=== PATIENT | male | born 1950 | race Caucasian/White ===

== ENCOUNTER 2017-11-05 15:35 | Emergency (ER) | payer SELFPAY ==
[~2017-11-05] VITALS: Ht 172.7 cm; Wt 86.5 kg
[2017-11-05 16:54] LABS: BASOPHILS % 0.9 % (0.0-2.0); EOSINOPHILS % 1.1 % (0.0-5.0); HEMATOCRIT. 44.6 % (42.0-52.0); HEMOGLOBIN. 15.6 g/dL (14.0-18.0); LYMPHOCYTES % 29.7 % (20.0-50.0); MEAN CORPUSCULAR HEMOGLOBIN 36.2 pg (28.0-32.0); MEAN CORPUSCULAR VOLUME 103.5 fL (80.0-94.0); MEAN PLATELET VOLUME 9.6 fl (7.4-10.4); MONOCYTES % 10.2 % (2.0-8.0); NEUTROPHILS % 58.1 % (40.0-76.0); PLATELET 199 x1000/uL (130-400); RED BLOOD CELL COUNT 4.31 mill/uL (4.7-6.1); RED CELL DISTRIBUTION WIDTH 15.3 % (11.6-14.6)
[2017-11-05 16:57] LABS: CHLORIDE 106 mEq/L (98-107)
[2017-11-05] MEDS ORDERED: VERAPAMIL HCL 2.5 MG/1 ML 2ML VIAL IV ONE ×4 (17:30→18:30)
[2017-11-05] MEDS ORDERED: DILTIAZEM HCL 60MG TABLET PO ONE (18:00)
[2017-11-05 19:03] VITALS: BP 159/96
== END 2017-11-05 19:10 | disposition home or self-care (01) ==
LOC: ER 15:35
DX: I48.91 Unspecified atrial fibrillation (principal); I10 Essential (primary) hypertension; R00.0 Tachycardia, unspecified; Z87.891 Personal history of nicotine dependence
CPT/HCPCS: 36415; 71045; 80053; 83690; 84484; 85025; 93005; 96374; 96376; 99285; J3490; Z7610

== ENCOUNTER 2017-12-01 12:30 | Inpatient (IN) | payer SELFPAY ==
[~2017-12-01] VITALS: Ht 177.8 cm; Wt 86.6 kg
[2017-12-01 13:12] LABS: EOSINOPHILS % 0.5 % (0.0-5.0); HEMATOCRIT. 44.8 % (42.0-52.0); HEMOGLOBIN. 15.4 g/dL (14.0-18.0); LYMPHOCYTES % 25.4 % (20.0-50.0); MEAN CORPUSCULAR HEMOGLOBIN 35.5 pg (28.0-32.0); MEAN CORPUSCULAR VOLUME 103.2 fL (80.0-94.0); MEAN PLATELET VOLUME 9.9 fl (7.4-10.4); MONOCYTES % 9.8 % (2.0-8.0); NEUTROPHILS % 63.3 % (40.0-76.0); PLATELET 188 x1000/uL (130-400); RED BLOOD CELL COUNT 4.34 mill/uL (4.7-6.1); RED CELL DISTRIBUTION WIDTH 14.3 % (11.6-14.6)
[2017-12-01 13:14] LABS: CHLORIDE 103 mEq/L (98-107)
[2017-12-01 13:17] LABS: INR 1.1; PARTIAL THROMBOPLASTIN TIME 27.6 sec (23.4-31.0); PROTHROMBIN TIME 11.2 sec (9.4-11.6)
[2017-12-01] MEDS ORDERED: DILTIAZEM HCL 125 MG in DEXT 5% WATER 100 ML IV ONE ×4 (13:45)
[2017-12-01] MEDS ORDERED: ASPIRIN 81MG TABLET PO ONE (13:45)
[2017-12-01] MEDS ORDERED: DILTIAZEM HCL 5MG/ML 5ML VIAL IV ONE (13:45)
[2017-12-01 16:00] VITALS: BP 136/70
[2017-12-01 16:28] VITALS: BP 136/70
[2017-12-01] MEDS ORDERED: LORAZEPAM 0.5MG TABLET PO ONE (16:30)
[2017-12-01] MEDS ORDERED: LORAZEPAM 0.5MG TABLET PO PRN (17:00)
[2017-12-01] MEDS ORDERED: NITROGLYCERIN 0.4MG TABLET SL SL PRN (17:00)
[2017-12-01] MEDS: NITROGLYCERIN OINT 1GM/INCH UDPKT TD SCH ×2 (17:13→19:56)
[2017-12-01] MEDS ORDERED: ENOXAPARIN 30MG/0.3ML SYR SUBCUT NR (17:20)
[2017-12-01] MEDS ORDERED: ENOXAPARIN 40MG/0.4ML SYR SUBCUT NR (17:22)
[2017-12-01] MEDS ORDERED: ONDANSETRON HCL 4MG/2ML VIAL IV PRN (17:45)
[2017-12-01] MEDS ORDERED: NA PHOS,M-B/NA PHOS,DI-BA ENEMA 118ML PR PRN (17:45)
[2017-12-01] MEDS ORDERED: DIPHENHYDRAMINE 50MG/ML VIAL IV PRN (17:45)
[2017-12-01] MEDS ORDERED: ACETAMINOPHEN 325MG TABLET PO PRN (17:45)
[2017-12-01] MEDS ORDERED: MAGNESIUM/ALUMINUM HYDROXIDE/SIMETHICONE 30ML UDC PO PRN (17:45)
[2017-12-01] MEDS ORDERED: IPRATROPIUM/ALBUTEROL 0.5-3(2.5)MG/3ML NEB INH PRN (17:45)
[2017-12-01] MEDS ORDERED: GUAIFENESIN 200MG/10ML SUGAR FREE UDC PO PRN (17:45)
[2017-12-01 18:00] VITALS: BP 128/58
[2017-12-01 18:08] LABS: *AMPHETAMINES SCREEN URINE NEGATIVE (NEGATIVE); *BARBITURATES SCREEN URINE NEGATIVE (NEGATIVE); *BENZODIAZEPINES SCREEN URINE NEGATIVE (NEGATIVE); *COCAINE SCREEN URINE NEGATIVE (NEGATIVE)
[2017-12-01 18:09] LABS: CANNABINOID URINE SCREEN NEGATIVE (NEGATIVE); METHADONE URINE SCREEN NEGATIVE (NEGATIVE); OPIATES URINE SCREEN NEGATIVE (NEGATIVE); PHENCYCLIDINE URINE SCREEN NEGATIVE (NEGATIVE)
[2017-12-01 19:45] VITALS: BP 113/73
[2017-12-01] MEDS: DILTIAZEM HCL 125 MG in DEXT 5% WATER 100 ML IV SCH (19:53)
[2017-12-01 20:01] VITALS: BP 115/75
[2017-12-01] MEDS: LORAZEPAM 0.5MG TABLET PO PRN (20:09)
[2017-12-01 22:00] VITALS: BP 131/88
[2017-12-01] MEDS: ZOLPIDEM TARTRATE 5MG TABLET PO PRN (22:09)
[2017-12-02] VITALS (15 sets, daily range): BP systolic 112–166; BP diastolic 47–97
[2017-12-02] MEDS: NITROGLYCERIN OINT 1GM/INCH UDPKT TD SCH ×6 (00:11→20:42)
[2017-12-02] MEDS: ZOLPIDEM TARTRATE 5MG TABLET PO PRN ×2 (00:11→22:12)
[2017-12-02] MEDS: LORAZEPAM 0.5MG TABLET PO PRN ×2 (02:43→12:47)
[2017-12-02 06:55] LABS: BASOPHILS % 1.1 % (0.0-2.0); EOSINOPHILS % 0.3 % (0.0-5.0); HEMATOCRIT. 41.1 % (42.0-52.0); HEMOGLOBIN. 14.4 g/dL (14.0-18.0); LYMPHOCYTES % 17.6 % (20.0-50.0); MEAN CORPUSCULAR HEMOGLOBIN 35.9 pg (28.0-32.0); MEAN CORPUSCULAR VOLUME 102.7 fL (80.0-94.0); MEAN PLATELET VOLUME 10.5 fl (7.4-10.4); MONOCYTES % 12.3 % (2.0-8.0); NEUTROPHILS % 68.7 % (40.0-76.0); PLATELET 173 x1000/uL (130-400); RED BLOOD CELL COUNT 4.01 mill/uL (4.7-6.1)
[2017-12-02] MEDS ORDERED: SODIUM CHLORIDE 0.45% 1,000 ML IV SCH (07:00)
[2017-12-02 07:03] LABS: CHLORIDE 101 mEq/L (98-107)
[2017-12-02] MEDS ORDERED: LIDOCAINE HCL/PF 1% 10 MG/ML 30ML VIAL ONE (07:18)
[2017-12-02] MEDS ORDERED: IODIXANOL 320MG/ML 100 ML BOTTLE IV ONE ×2 (07:18→09:43)
[2017-12-02] MEDS ORDERED: ASPIRIN/SOD BICARB/CITRIC ACID 324MG TAB EFF ONE (07:21)
[2017-12-02 07:24] LABS: CREATINE KINASE 316 IU/L (39-308); CREATINE KINASE MB FRACTION 33.1 ng/mL (0.5-3.6); HDL CHOLESTEROL 65 mg/dL (40-59)
[2017-12-02 07:27] LABS: LDL CHOLESTEROL 69 mg/dL (5-100)
[2017-12-02] MEDS ORDERED: ASPI-1159 PO (07:32)
[2017-12-02] MEDS ORDERED: ASCO-316 PO (07:32)
[2017-12-02] MEDS ORDERED: CYAN10009 PO (07:32)
[2017-12-02] MEDS ORDERED: DOCU250C19 PO (07:32)
[2017-12-02] MEDS ORDERED: FENTANYL CITRATE/PF 50MCG/ML 2ML VIAL ONE (08:45)
[2017-12-02] MEDS ORDERED: MIDAZOLAM HCL 2 MG/2 ML VIAL ONE (08:45)
[2017-12-02] MEDS: DILTIAZEM HCL 125 MG in DEXT 5% WATER 100 ML IV SCH ×2 (09:00→20:07)
[2017-12-02] MEDS ORDERED: IOHEXOL-300 100 ML BOTTLE ONE (09:18)
[2017-12-02] MEDS ORDERED: CLOPIDOGREL 75MG TABLET ONE (09:36)
[2017-12-02] MEDS ORDERED: ATROPINE SULFATE 1MG/10ML SYR IV PRN (10:00)
[2017-12-02] MEDS ORDERED: MORPHINE SULFATE 2 MG/ML CPJ (NOT FOR IM USE) IV PRN (10:00)
[2017-12-02] MEDS ORDERED: ACETAMINOPHEN 325MG TABLET PO PRN (10:00)
[2017-12-02] MEDS ORDERED: ONDANSETRON HCL 4MG/2ML VIAL IV PRN (10:00)
[2017-12-02] MEDS ORDERED: SODIUM CHLORIDE 0.45% 1,000 ML IV ONE (10:00)
[2017-12-02] MEDS ORDERED: CLOPIDOGREL 75MG TABLET PO ONE (10:00)
[2017-12-02] MEDS ORDERED: DILTIAZEM HCL 60MG TABLET PO SCH (12:00)
[2017-12-02] MEDS ORDERED: HEPARIN SODIUM 1,000 UNIT/1ML VIAL IV ONE (12:30)
[2017-12-02] MEDS ORDERED: CHLORDIAZEPOXIDE 25MG CAPSULE PO PRN (13:45)
[2017-12-02] MEDS ORDERED: LORAZEPAM 0.5MG TABLET PO NR (13:45)
[2017-12-02] MEDS ORDERED: SPIRONOLACTONE 25MG TABLET PO NR (16:15)
[2017-12-02] MEDS ORDERED: POTASSIUM CHLORIDE 20MEQ TABLET SR PO NR (16:15)
[2017-12-02] MEDS ORDERED: FUROSEMIDE 40MG/4ML VIAL IVP NR (16:15)
[2017-12-02 16:50] LABS: BG CARBOXYHEMOGLOBIN 0.4 % (0.5-1.5); BG DEOXYHEMOGLOBIN 10.2 % (0.0-5.0); BG FRACTION INSPIRED OXYGEN 34; BG HCO3 ACT 23.4 mmol/L (22.0-26.0); BG METHEMOGLOBIN 0.3 % (0.0-1.5); BG OXYGEN SATURATION 89.7 % (92.0-98.5); BG OXYHEMOGLOBIN 89.1 % (94.0-97.0); BG PCO2 28.6 mmHg (35.0-45.0); BG PO2 54.5 mmHg (75.0-100.0); BG SAMPLE SITE RIGHT BRACHIAL; BG TOTAL HEMOGLOBIN 16.2 g/dL (12.0-18.0); BG VENT MODE NASAL CANNULA
[2017-12-02] MEDS ORDERED: FOLIC ACID 1 MG, THIAMINE HCL 100 MG, MVI, ADULT NO.1 10 ML in DEXTROSE 5% WATER 1,000 ML IV NR ×4 (18:00)
[2017-12-02] MEDS: DILTIAZEM HCL 90MG TABLET PO SCH (18:55)
[2017-12-02] MEDS ORDERED: MAGNESIUM 1 G PREMIX 100 ML IV NR (21:00)
[2017-12-02] MEDS: LACTULOSE 20G/30ML UDC PO SCH (22:11)
[2017-12-02] MEDS: CHLORDIAZEPOXIDE 25MG CAPSULE PO SCH (22:12)
[2017-12-02] MEDS: FOLIC ACID 1 MG, THIAMINE HCL 100 MG, MVI, ADULT NO.1 10 ML in DEXTROSE 5% WATER 1,000 ML IV NR ×4 (22:13)
[2017-12-03] VITALS (12 sets, daily range): BP systolic 104–173; BP diastolic 46–86
[2017-12-03] MEDS: DILTIAZEM HCL 90MG TABLET PO SCH ×4 (00:29→18:08)
[2017-12-03] MEDS: NITROGLYCERIN OINT 1GM/INCH UDPKT TD SCH ×6 (00:30→20:54)
[2017-12-03 06:31] LABS: CHLORIDE 97 mEq/L (98-107)
[2017-12-03] MEDS: LACTULOSE 20G/30ML UDC PO SCH ×2 (06:31→16:19)
[2017-12-03] MEDS: CHLORDIAZEPOXIDE 25MG CAPSULE PO SCH ×3 (06:31→21:46)
[2017-12-03 06:42] LABS: PHOSPHORUS 4.1 mg/dL (2.5-4.9)
[2017-12-03 06:43] LABS: BASOPHILS % 0.8 % (0.0-2.0); EOSINOPHILS % 0.3 % (0.0-5.0); HEMATOCRIT. 42.4 % (42.0-52.0); HEMOGLOBIN. 14.9 g/dL (14.0-18.0); LYMPHOCYTES % 16.7 % (20.0-50.0); MEAN CORPUSCULAR VOLUME 102.5 fL (80.0-94.0); MEAN PLATELET VOLUME 10.5 fl (7.4-10.4); MONOCYTES % 8.8 % (2.0-8.0); NEUTROPHILS % 73.4 % (40.0-76.0); PLATELET 170 x1000/uL (130-400); RED BLOOD CELL COUNT 4.13 mill/uL (4.7-6.1)
[2017-12-03 06:45] LABS: CREATINE KINASE 182 IU/L (39-308)
[2017-12-03] MEDS: FOLIC ACID 1 MG, THIAMINE HCL 100 MG, MVI, ADULT NO.1 10 ML in DEXTROSE 5% WATER 1,000 ML IV NR ×4 (07:00)
[2017-12-03 07:43] LABS: AMMONIA 29 uMol/L (<32)
[2017-12-03] MEDS ORDERED: POTASSIUM CHLORIDE 20MEQ TABLET SR PO NR (09:00)
[2017-12-03] MEDS ORDERED: FUROSEMIDE 40MG/4ML VIAL IVP NR (09:15)
[2017-12-03] MEDS: ASPIRIN 81MG TABLET PO SCH ×2 (09:37→18:08)
[2017-12-03] MEDS: CLOPIDOGREL 75MG TABLET PO SCH (09:38)
[2017-12-03] MEDS: SPIRONOLACTONE 25MG TABLET PO SCH (09:38)
[2017-12-03] MEDS: FUROSEMIDE 40MG TABLET PO SCH (09:39)
[2017-12-03] MEDS ORDERED: MAGNESIUM 1 G PREMIX 100 ML IV NR (10:30)
[2017-12-03] MEDS: MULTIVITAMINS,THER W-MINERALS TABLET PO SCH (18:08)
[2017-12-03] MEDS: THIAMINE HCL 100MG TABLET PO SCH (18:08)
[2017-12-03] MEDS: FOLIC ACID 1MG TABLET PO SCH (18:08)
[2017-12-03] MEDS ORDERED: MORPHINE SULFATE 4 MG/ML CPJ (NOT FOR IM USE) IV PRN (19:02)
[2017-12-03] MEDS: CARVEDILOL 3.125 MG TABLET PO SCH (21:44)
[2017-12-03] MEDS ORDERED: CHLORDIAZEPOXIDE 25MG CAPSULE PO SCH (22:00)
[2017-12-04] VITALS (14 sets, daily range): BP systolic 99–121; BP diastolic 54–74
[2017-12-04] MEDS: NITROGLYCERIN OINT 1GM/INCH UDPKT TD SCH ×6 (04:00→21:09)
[2017-12-04] MEDS: DILTIAZEM HCL 90MG TABLET PO SCH ×4 (06:17→17:47)
[2017-12-04] MEDS: CHLORDIAZEPOXIDE 25MG CAPSULE PO SCH ×3 (06:18→21:44)
[2017-12-04 07:02] LABS: AMMONIA 49 uMol/L (<32)
[2017-12-04 07:08] LABS: BASOPHILS % 0.9 % (0.0-2.0); EOSINOPHILS % 2.2 % (0.0-5.0); HEMATOCRIT. 41.6 % (42.0-52.0); HEMOGLOBIN. 14.4 g/dL (14.0-18.0); LYMPHOCYTES % 23.3 % (20.0-50.0); MEAN CORPUSCULAR HEMOGLOBIN 35.7 pg (28.0-32.0); MEAN CORPUSCULAR VOLUME 103.3 fL (80.0-94.0); MEAN PLATELET VOLUME 10.5 fl (7.4-10.4); MONOCYTES % 9.6 % (2.0-8.0); PLATELET 169 x1000/uL (130-400); RED BLOOD CELL COUNT 4.03 mill/uL (4.7-6.1)
[2017-12-04 07:38] LABS: CHLORIDE 99 mEq/L (98-107)
[2017-12-04 07:49] LABS: CREATINE KINASE 80 IU/L (39-308); PHOSPHORUS 4.3 mg/dL (2.5-4.9)
[2017-12-04 07:54] LABS: CREATINE KINASE MB FRACTION 1.8 ng/mL (0.5-3.6)
[2017-12-04] MEDS: CARVEDILOL 3.125 MG TABLET PO SCH (08:37)
[2017-12-04] MEDS: MULTIVITAMINS,THER W-MINERALS TABLET PO SCH (08:37)
[2017-12-04] MEDS: THIAMINE HCL 100MG TABLET PO SCH (08:38)
[2017-12-04] MEDS: CLOPIDOGREL 75MG TABLET PO SCH (08:38)
[2017-12-04] MEDS: FOLIC ACID 1MG TABLET PO SCH (08:38)
[2017-12-04] MEDS: FUROSEMIDE 40MG TABLET PO SCH (08:38)
[2017-12-04] MEDS: ASPIRIN 81MG TABLET PO SCH ×2 (08:38→17:45)
[2017-12-04] MEDS: SPIRONOLACTONE 25MG TABLET PO SCH (08:38)
[2017-12-04] MEDS ORDERED: CARVEDILOL 3.125 MG TABLET PO NR (09:45)
[2017-12-04] MEDS: ENOXAPARIN 100MG/ML SYR SUBCUT SCH ×2 (10:38→21:44)
[2017-12-04] MEDS: DOCUSATE SODIUM 100MG CAPSULE PO PRN (18:12)
[2017-12-04] MEDS: CARVEDILOL 6.25 MG TABLET PO SCH (21:44)
[2017-12-05] VITALS (9 sets, daily range): BP systolic 100–137; BP diastolic 53–76
[2017-12-05] MEDS: DILTIAZEM HCL 90MG TABLET PO SCH ×2 (00:32→06:00)
[2017-12-05] MEDS: NITROGLYCERIN OINT 1GM/INCH UDPKT TD SCH ×5 (00:32→15:44)
[2017-12-05 06:25] LABS: BASOPHILS % 1.3 % (0.0-2.0); EOSINOPHILS % 3.1 % (0.0-5.0); HEMATOCRIT. 42.2 % (42.0-52.0); HEMOGLOBIN. 14.6 g/dL (14.0-18.0); LYMPHOCYTES % 29.7 % (20.0-50.0); MEAN CORPUSCULAR HEMOGLOBIN 35.6 pg (28.0-32.0); MEAN CORPUSCULAR VOLUME 103.2 fL (80.0-94.0); MEAN PLATELET VOLUME 10.1 fl (7.4-10.4); MONOCYTES % 11.1 % (2.0-8.0); NEUTROPHILS % 54.8 % (40.0-76.0); PLATELET 178 x1000/uL (130-400); RED BLOOD CELL COUNT 4.09 mill/uL (4.7-6.1); RED CELL DISTRIBUTION WIDTH 14.1 % (11.6-14.6)
[2017-12-05] MEDS: CHLORDIAZEPOXIDE 25MG CAPSULE PO SCH ×2 (06:35→14:00)
[2017-12-05 07:23] LABS: CHLORIDE 99 mEq/L (98-107)
[2017-12-05 07:26] LABS: AMMONIA 44 uMol/L (<32)
[2017-12-05 07:37] LABS: CREATINE KINASE 47 IU/L (39-308)
[2017-12-05] MEDS: ENOXAPARIN 100MG/ML SYR SUBCUT SCH (08:59)
[2017-12-05] MEDS: MULTIVITAMINS,THER W-MINERALS TABLET PO SCH (09:00)
[2017-12-05] MEDS: FUROSEMIDE 40MG TABLET PO SCH (09:00)
[2017-12-05] MEDS: FOLIC ACID 1MG TABLET PO SCH (09:00)
[2017-12-05] MEDS: CARVEDILOL 6.25 MG TABLET PO SCH (09:00)
[2017-12-05] MEDS: SPIRONOLACTONE 25MG TABLET PO SCH (09:01)
[2017-12-05] MEDS: CLOPIDOGREL 75MG TABLET PO SCH (09:01)
[2017-12-05] MEDS: THIAMINE HCL 100MG TABLET PO SCH (09:01)
[2017-12-05] MEDS: ASPIRIN 81MG TABLET PO SCH (09:01)
[2017-12-05] MEDS: DOCUSATE SODIUM 100MG CAPSULE PO PRN (09:04)
[2017-12-05] MEDS ORDERED: THIA100T72 PO (09:30)
[2017-12-05] MEDS ORDERED: L25 PO (09:30)
[2017-12-05] MEDS ORDERED: DILTIAZEM HCL 180MG CAPSULE CD 24HR PO SCH (09:30)
[2017-12-05] MEDS ORDERED: DILT180C69 PO (09:30)
[2017-12-05] MEDS ORDERED: COR6 PO (09:30)
[2017-12-05] MEDS ORDERED: FURO40TA5 PO (09:30)
[2017-12-05] MEDS ORDERED: POTASSIUM CHLORIDE 20MEQ TABLET SR PO NR (09:30)
[2017-12-05] MEDS ORDERED: SPIR25TA PO (09:30)
[2017-12-05] MEDS ORDERED: FOLI-43 PO (09:30)
[2017-12-05] MEDS ORDERED: CLOP75TA16 PO (09:30)
[2017-12-05 10:21] LABS: CREATINE KINASE MB FRACTION 1.3 ng/mL (0.5-3.6)
[2017-12-05] MEDS ORDERED: MAGNESIUM CITRATE 300ML SOLUTION PO NR (10:30)
[2017-12-05] MEDS ORDERED: MAGNESIUM 1 G PREMIX 100 ML IV NR (10:30)
[2017-12-06] MEDS ORDERED: ASPIRIN 81MG TABLET PO SCH (09:00)
[2017-12-06] MEDS ORDERED: RIVAROXABAN 15 MG TABLET PO SCH (18:00)
== END 2017-12-05 17:26 | disposition home or self-care (01) | DRG 174 ==
LOC: ER 12:30 → 3WST 14:29 → CANRESERV 14:47 → ENRESERV 14:47 → EDBEDREQTM 14:56 → EDBEDREQ 14:56 → EDBEDREQSVC 14:56 → ENRESERV 15:11 → ER 15:45
PROVIDERS: ADMIT Internal Medicine; ATTEND Internal Medicine
PROC: 027034Z Dilation of Coronary Artery, One Artery with Drug-eluting Intraluminal Device, Percutaneous Approach (ICD-10-PCS; principal; 2017-12-02)
PROC: 4A023N7 Measurement of Cardiac Sampling and Pressure, Left Heart, Percutaneous Approach (ICD-10-PCS; 2017-12-02)
PROC: B2111ZZ Fluoroscopy of Multiple Coronary Arteries using Low Osmolar Contrast (ICD-10-PCS; 2017-12-02)
PROC: B2151ZZ Fluoroscopy of Left Heart using Low Osmolar Contrast (ICD-10-PCS; 2017-12-02)
PROC: 02703ZZ Dilation of Coronary Artery, One Artery, Percutaneous Approach (ICD-10-PCS; 2017-12-02)
DX: I21.4 Non-ST elevation (NSTEMI) myocardial infarction (principal); J96.91 Respiratory failure, unspecified with hypoxia; I50.9 Heart failure, unspecified; I11.0 Hypertensive heart disease with heart failure; I48.1 Persistent atrial fibrillation; I48.2 Chronic atrial fibrillation; F10.239 Alcohol dependence with withdrawal, unspecified; E78.5 Hyperlipidemia, unspecified; E66.9 Obesity, unspecified; D75.89 Other specified diseases of blood and blood-forming organs; E78.00 Pure hypercholesterolemia, unspecified; F41.9 Anxiety disorder, unspecified; I25.5 Ischemic cardiomyopathy; K59.00 Constipation, unspecified; Z79.01 Long term (current) use of anticoagulants; Z79.82 Long term (current) use of aspirin; Z87.891 Personal history of nicotine dependence; Z91.14 Patient's other noncompliance with medication regimen; Z68.26 Body mass index [BMI] 26.0-26.9, adult
CPT/HCPCS: 36415; 36600; 71045; 78582; 80048; 80053; 80061; 80305; 82140; 82375; 82550; 82553; 82693; 82805; 83690; 83735; 83880; 84100; 84443; 84484; 85025; 85347; 85379; 85610; 85730; 92928; 93005; 93458; 93970; 96374; 96376; 99291; A9558; C1725; C1769; C1887; C1893; J1644; J1650; J1940; J2250; J3010; J3411; J3475; J3490; J7050; J7060; J7070; J7620; Q9967